=== PATIENT | male | born 1975 | race Caucasian/White ===

== ENCOUNTER 2016-06-24 08:02 | Emergency (ER) | payer OTHER ==
[2016-06-24] MEDS ORDERED: TETANUS/DIPHTHERIA/PERTUSSIS 0.5 ML SYRINGE IM ONE (08:57)
== END 2016-06-24 09:26 | disposition home or self-care (01) ==
DX: S91.331A Puncture wound without foreign body, right foot, initial encounter (principal); W45.0XXA Nail entering through skin, initial encounter; Z23 Encounter for immunization